=== PATIENT | male | born 1930 | race Caucasian/White ===

== ENCOUNTER 2016-10-28 09:52 | Inpatient (IN) | payer OTHER ==
[~2016-10-28] VITALS: Ht 177.8 cm; Wt 83.9 kg
[~2016-10-28 09:52] MED LIST: LEVAQUIN500 MG PO
[2016-10-28 10:53] LABS: EOSINOPHIL (%) 1.1 % (0-5); EOSINOPHIL COUNT 0.1 K/uL (0-0.3); HEMATOCRIT 42.5 % (38.0-50.0); IMMATURE GRANULOCYTE (%) 0.4 % (0.0-0.7); INSTRUMENT ABS NEUTROPHIL CT 7.3 K/uL; LYMPHOCYTE COUNT 1.4 K/uL (1.0-2.8); MCH 30.7 PG (29.0-34.0); MCHC 33.2 G/DL (30.0-36.0); MCV 92.6 FL (86-99); MEAN PLAT.VOLUME 10.7 uM^3 (9.0-12.4); MONOCYTE (%) 7.6 % (3-12); MONOCYTE COUNT 0.7 K/uL (0-0.8); NEUTROPHIL (%) 76.4 % (45-76); NEUTROPHIL COUNT 7.3 K/uL (1.8-6.4); PLATELET COUNT 284 K/uL (156-360); RBC DIS.WIDTH-SD 44.2 % (39-53); RED BLOOD COUNT 4.59 M/uL (4.00-5.50); WHITE BLOOD COUNT 9.5 K/uL (4.1-10.2)
[2016-10-28 11:07] LABS: CHLORIDE 103 mEq/L (99-109); POTASSIUM 5.1 mEq/L (3.7-5.4); SODIUM 137 mEq/L (136-147)
[2016-10-28 11:09] LABS: GLUCOSE 187 mg/dL (70-99)
[2016-10-28 11:11] LABS: ANION GAP 11 MEQ/L (2-14); TOTAL BILIRUBIN 0.6 mg/dL (0.0-1.0)
[2016-10-28 11:13] LABS: ALKALINE PHOSPHATASE 57 IU/L (3-129); GFR ESTIMATE (CALCULATED) 56 mL/min/
[2016-10-28 11:14] LABS: UREA NITROGEN (BUN) 21 mg/dL (9-23)
[2016-10-28 11:17] LABS: LIPASE 15 U/L (1.0-51.0)
[2016-10-28] MEDS ORDERED: LOPRESSOR50 MG PO (14:29)
[2016-10-28] MEDS ORDERED: LEVEMIR FL100 UNIT/1 SC (14:30)
[2016-10-28] MEDS ORDERED: METFORMIN HCL500 MG PO (14:33)
[2016-10-28] MEDS ORDERED: SIMVASTATIN40 MG PO (14:33)
[2016-10-28] MEDS ORDERED: GLIMEPIRIDE4 MG PO (14:33)
[2016-10-28] MEDS ORDERED: [UNRECOGNIZED DRUG - OTHER] PO (14:34)
[2016-10-28] MEDS ORDERED: ASPIR-LOW81 MG PO (14:36)
[2016-10-28 15:19] LABS: ADD MIUA? YES; BILIRUBIN NEGATIVE; BLOOD MODERATE; COLOR YELLOW ((YELLOW)); GLUCOSE (STRIP) NEGATIVE; KETONES NEGATIVE; LEUKOCYTES LARGE; NITRITE POSITIVE; PROTEIN (STRIP) 100; SPECIFIC GRAVITY 1.014 (1.000-1.030); UROBILINOGEN 0.2 MG/DL (0.2-1.0)
[2016-10-28 15:42] LABS: EPITHELIAL CELLS 1+ /HPF; MUCUS NONE SEEN /LPF; WHITE BLOOD CELLS TNTC /HPF (0-5)
[2016-10-28 15:43] LABS: BACTERIA 4+ /HPF
[2016-10-28 21:00] VITALS: BP 151/66
[2016-10-29 07:48] VITALS: BP 119/60
[2016-10-29 11:28] LABS: POINT-OF-CARE METER ID UU13113725
[2016-10-29 12:06] LABS: ANION GAP 8 MEQ/L (2-14); CHLORIDE 104 MEQ/L (99-109); POTASSIUM 4.1 MEQ/L (3.7-5.4); SAMPLE HEMOLYSIS CHECK 0; SAMPLE ICTERIC CHECK 0; SAMPLE LIPEMIA CHECK 0; SODIUM 135 MEQ/L (136-147)
[2016-10-29 12:12] LABS: GFR ESTIMATE (CALCULATED) > 59 mL/min/; GLUCOSE 183 mg/dL (70-99); UREA NITROGEN (BUN) 14 mg/dL (9-23)
[2016-10-29 19:40] VITALS: BP 121/58
[2016-10-29 23:18] VITALS: BP 134/64
[2016-10-30 03:33] VITALS: BP 119/54
[2016-10-30 06:26] LABS: HEMATOCRIT 35.9 % (38.0-50.0); MCH 30.8 PG (29.0-34.0); MCHC 33.4 G/DL (30.0-36.0); MCV 92.1 FL (86-99); MEAN PLAT.VOLUME 10.3 uM^3 (9.0-12.4); PLATELET COUNT 214 K/uL (156-360); RBC DIS.WIDTH-CV 13.1 % (11.8-14.6); RBC DIS.WIDTH-SD 43.8 % (39-53); WHITE BLOOD COUNT 7.7 K/uL (4.1-10.2)
[2016-10-30 06:42] LABS: ALKALINE PHOSPHATASE 45 IU/L (3-129); ANION GAP 7 MEQ/L (2-14); CHLORIDE 108 MEQ/L (99-109); GFR ESTIMATE (CALCULATED) > 59 mL/min/; GLUCOSE 148 mg/dL (70-99); POTASSIUM 3.9 MEQ/L (3.7-5.4); SAMPLE HEMOLYSIS CHECK 0; SAMPLE ICTERIC CHECK 0; SAMPLE LIPEMIA CHECK 0; SODIUM 139 MEQ/L (136-147); TOTAL BILIRUBIN 0.4 MG/DL (0.0-1.0); UREA NITROGEN (BUN) 10 mg/dL (9-23)
[2016-10-30 07:01] LABS: POINT-OF-CARE METER ID UU13113725
[2016-10-30 07:40] VITALS: BP 122/64
[2016-10-30 14:38] VITALS: BP 116/88
[2016-10-30] MEDS ORDERED: CIPRO500 MG PO (15:14)
[2016-10-30] MEDS ORDERED: TRAMADOL HCL50 MG PO (15:16)
== END 2016-10-30 16:51 | disposition home or self-care (01) | DRG 699 ==
LOC: EME 09:52 → 5EAST 16:00 → EDOF 16:00 → 5EAST 20:20
PROVIDERS: Emergency Medicine; Internal Medicine
DX: I82.3 Embolism and thrombosis of renal vein (principal); N10 Acute pyelonephritis; N39.0 Urinary tract infection, site not specified; E11.9 Type 2 diabetes mellitus without complications; I10 Essential (primary) hypertension; E78.5 Hyperlipidemia, unspecified; B96.89 Other specified bacterial agents as the cause of diseases classified elsewhere; N43.3 Hydrocele, unspecified; I25.10 Atherosclerotic heart disease of native coronary artery without angina pectoris; R33.9 Retention of urine, unspecified; K80.20 Calculus of gallbladder without cholecystitis without obstruction; Z79.4 Long term (current) use of insulin; Z85.51 Personal history of malignant neoplasm of bladder; Z95.5 Presence of coronary angioplasty implant and graft; Z90.49 Acquired absence of other specified parts of digestive tract
CPT/HCPCS: 71020; 74177; 80053; 80069; 81003; 82948; 83690; 85025; 85027; 87077; 87086; 87186; 99281; 99285; J0696; J0744; J1815; J2270; J7030; J7050; S0030

== ENCOUNTER 2016-11-22 20:13 | Inpatient (IN) | payer OTHER ==
[~2016-11-22] VITALS: Ht 180.3 cm; Wt 77.0 kg
[~2016-11-22 20:13] MED LIST changes: +ASPIR-LOW81 MG PO; +CIPRO500 MG PO; +GLIMEPIRIDE4 MG PO; +LEVEMIR FL100 UNIT/1 SC; +LOPRESSOR50 MG PO; +METFORMIN HCL500 MG PO; +SIMVASTATIN40 MG PO; +TRAMADOL HCL50 MG PO; +[UNRECOGNIZED DRUG - OTHER] PO
[2016-11-22 20:52] LABS: EOSINOPHIL (%) 0.1 % (0-5); HEMATOCRIT 45.1 % (38.0-50.0); IMMATURE GRANULOCYTE (%) 0.9 % (0.0-0.7); IMMATURE GRANULOCYTE COUNT 0.1 K/uL; INSTRUMENT ABS NEUTROPHIL CT 14.4 K/uL; MCH 29.8 PG (29.0-34.0); MCHC 33.3 G/DL (30.0-36.0); MCV 89.7 FL (86-99); MEAN PLAT.VOLUME 10.1 uM^3 (9.0-12.4); MONOCYTE (%) 5.3 % (3-12); MONOCYTE COUNT 0.9 K/uL (0-0.8); NEUTROPHIL (%) 87.8 % (45-76); NEUTROPHIL COUNT 14.4 K/uL (1.8-6.4); PLATELET COUNT 404 K/uL (156-360); RBC DIS.WIDTH-CV 13.1 % (11.8-14.6); RBC DIS.WIDTH-SD 42.9 % (39-53); RED BLOOD COUNT 5.03 M/uL (4.00-5.50); WHITE BLOOD COUNT 16.4 K/uL (4.1-10.2)
[2016-11-22 20:59] LABS: CHLORIDE 96 mEq/L (99-109); SODIUM 132 mEq/L (136-147)
[2016-11-22 21:00] LABS: MAGNESIUM 1.4 mg/dL (1.3-2.7)
[2016-11-22 21:02] LABS: GLUCOSE 67 mg/dL (70-99)
[2016-11-22 21:03] LABS: ANION GAP 16 MEQ/L (2-14); TOTAL BILIRUBIN 0.5 mg/dL (0.0-1.0)
[2016-11-22 21:05] LABS: ALKALINE PHOSPHATASE 63 IU/L (3-129); GFR ESTIMATE (CALCULATED) 51 mL/min/
[2016-11-22 21:06] LABS: UREA NITROGEN (BUN) 24 mg/dL (9-23)
[2016-11-22 21:07] LABS: DIRECT BILIRUBIN 0.3 mg/dL (0.0-0.3)
[2016-11-22 21:09] LABS: LIPASE 11 U/L (1.0-51.0)
[2016-11-22 21:11] LABS: TROP-I INTERPRETATION NEGATIVE; TROPONIN-I 0.02 ng/mL (0.0-0.30)
[2016-11-22 21:59] LABS: ADD MIUA? YES; BILIRUBIN NEGATIVE; BLOOD LARGE; COLOR YELLOW ((YELLOW)); GLUCOSE (STRIP) NEGATIVE; KETONES 20; LEUKOCYTES MODERATE; NITRITE NEGATIVE; PROTEIN (STRIP) 30; SPECIFIC GRAVITY 1.012 (1.000-1.030); UROBILINOGEN 0.2 MG/DL (0.2-1.0)
[2016-11-22 22:18] LABS: BACTERIA 2+ /HPF; CASTS PRESENT /LPF; CRYSTALS NONE SEEN; EPITHELIAL CELLS RARE /HPF; MUCUS 1+ /LPF; UCUL ADDED? YES; WHITE BLOOD CELLS TNTC /HPF (0-5)
[2016-11-22 22:19] LABS: COARSE GRANULAR CASTS RARE /LPF; HYALINE CASTS 0-5 /LPF
[2016-11-22 22:21] LABS: D-DIMER ELISA 2.47 mg/L FEU (< 0.57)
[2016-11-23 01:24] VITALS: BP 124/58
[2016-11-23 01:47] VITALS: BP 124/58
[2016-11-23 04:07] VITALS: BP 106/52
[2016-11-23 06:18] VITALS: BP 122/59
[2016-11-23 07:10] LABS: TROP-I INTERPRETATION NEGATIVE; TROPONIN-I 0.06 ng/mL (0.0-0.30)
[2016-11-23 07:12] LABS: ALKALINE PHOSPHATASE 50 IU/L (3-129); ANION GAP 8 MEQ/L (2-14); CHLORIDE 101 MEQ/L (99-109); GFR ESTIMATE (CALCULATED) > 59 mL/min/; GLUCOSE 59 mg/dL (70-99); SAMPLE HEMOLYSIS CHECK 0; SAMPLE ICTERIC CHECK 0; SAMPLE LIPEMIA CHECK 0; SODIUM 133 MEQ/L (136-147); TOTAL BILIRUBIN 0.5 MG/DL (0.0-1.0); UREA NITROGEN (BUN) 20 mg/dL (9-23)
[2016-11-23 07:43] LABS: HEMATOCRIT 35.1 % (38.0-50.0); MCH 29.8 PG (29.0-34.0); MCHC 33.3 G/DL (30.0-36.0); MCV 89.5 FL (86-99); MEAN PLAT.VOLUME 10.1 uM^3 (9.0-12.4); PLATELET COUNT 290 K/uL (156-360); RBC DIS.WIDTH-CV 13.2 % (11.8-14.6); RBC DIS.WIDTH-SD 42.9 % (39-53); WHITE BLOOD COUNT 13.7 K/uL (4.1-10.2)
[2016-11-23 07:54] LABS: POINT-OF-CARE METER ID UU14174216
[2016-11-23 07:58] LABS: METH RESISTANT S AUREUS PCR NEGATIVE (NEGATIVE)
[2016-11-23 07:59] LABS: PROBE CHECK PASS; SPECIMEN PROCESSING CONTROL PASS
[2016-11-23 08:07] LABS: RED BLOOD COUNT 3.92 M/uL (4.00-5.50)
[2016-11-23 08:29] LABS: POINT-OF-CARE METER ID UU14174216
[2016-11-23 11:39] LABS: POINT-OF-CARE METER ID UU14174216
[2016-11-23] MEDS ORDERED: METFORMIN HCL500 MG PO (16:16)
[2016-11-23] MEDS ORDERED: LOPRESSOR50 MG PO (16:16)
[2016-11-23] MEDS ORDERED: ZOCOR40 MG PO (16:16)
[2016-11-23] MEDS ORDERED: AMARYL4 MG PO (16:17)
[2016-11-23] MEDS ORDERED: PROTONIX40 MG PO (16:18)
[2016-11-23] MEDS ORDERED: LEVAQUIN500 MG PO (16:18)
[2016-11-23] MEDS ORDERED: TRAMADOL HCL50 MG PO (16:19)
[2016-11-23] MEDS ORDERED: HYDROCODON-ACE1 EAC7 PO (16:19)
[2016-11-23 16:48] LABS: POINT-OF-CARE METER ID UU14174216
[2016-11-23] MEDS ORDERED: LEVEMIR FL100 UNIT/1 SC (17:02)
[2016-11-23 19:45] VITALS: BP 117/56
[2016-11-23 20:48] LABS: POINT-OF-CARE METER ID UU13113781
[2016-11-24] VITALS (7 sets, daily range): BP systolic 128–150; BP diastolic 63–94
[2016-11-24 06:44] LABS: HEMATOCRIT 35.8 % (38.0-50.0); MCH 30.3 PG (29.0-34.0); MCHC 33.8 G/DL (30.0-36.0); MCV 89.7 FL (86-99); MEAN PLAT.VOLUME 10.2 uM^3 (9.0-12.4); PLATELET COUNT 312 K/uL (156-360); RBC DIS.WIDTH-CV 13.1 % (11.8-14.6); RBC DIS.WIDTH-SD 42.7 % (39-53); RED BLOOD COUNT 3.99 M/uL (4.00-5.50); WHITE BLOOD COUNT 14.1 K/uL (4.1-10.2)
[2016-11-24 07:38] LABS: ALKALINE PHOSPHATASE 57 IU/L (3-129); ANION GAP 11 MEQ/L (2-14); CHLORIDE 100 MEQ/L (99-109); GFR ESTIMATE (CALCULATED) > 59 mL/min/; GLUCOSE 162 mg/dL (70-99); POTASSIUM 4.5 MEQ/L (3.7-5.4); SAMPLE HEMOLYSIS CHECK 1; SAMPLE ICTERIC CHECK 0; SAMPLE LIPEMIA CHECK 0; SODIUM 134 MEQ/L (136-147); TOTAL BILIRUBIN 0.6 MG/DL (0.0-1.0); UREA NITROGEN (BUN) 17 mg/dL (9-23)
[2016-11-24 08:00] LABS: POINT-OF-CARE USER ID ENVKC36
[2016-11-24 12:15] LABS: POINT-OF-CARE METER ID UU14174216; POINT-OF-CARE USER ID ENVKC36
[2016-11-24 16:51] LABS: POINT-OF-CARE USER ID ENVKC36
[2016-11-25 04:20] VITALS: BP 131/61
[2016-11-25 07:54] VITALS: BP 147/67
[2016-11-25 12:00] VITALS: BP 132/59
[2016-11-25 16:30] LABS: POINT-OF-CARE METER ID UU13113781
[2016-11-25 20:32] VITALS: BP 141/63
[2016-11-26 00:25] VITALS: BP 131/60
[2016-11-26 05:25] VITALS: BP 134/65
[2016-11-26 07:49] VITALS: BP 133/63
[2016-11-26 12:33] LABS: POINT-OF-CARE METER ID UU13113781
[2016-11-26 12:44] VITALS: BP 140/63
[2016-11-26] MEDS ORDERED: ELIQUIS5 MG PO (16:09)
[2016-11-26] MEDS ORDERED: DILTIAZEM 24HR120 MG PO (16:10)
[2016-11-26] MEDS ORDERED: MILK OF MAGNESI10 ML PO (16:11)
[2016-11-26] MEDS ORDERED: DOCUSATE SODIU100 MG PO (16:11)
[2016-11-26 17:55] VITALS: BP 130/66
== END 2016-11-26 21:02 | disposition home or self-care (01) | DRG 309 ==
LOC: EME → EDBD 20:13 → EME 20:13 → EDOF 22:14 → 4EAST 22:14
PROVIDERS: Emergency Medicine; Internal Medicine
DX: I48.0 Paroxysmal atrial fibrillation (principal); I72.8 Aneurysm of other specified arteries; I71.2 Thoracic aortic aneurysm, without rupture; I71.9 Aortic aneurysm of unspecified site, without rupture; N13.30 Unspecified hydronephrosis; E11.8 Type 2 diabetes mellitus with unspecified complications; K57.92 Diverticulitis of intestine, part unspecified, without perforation or abscess without bleeding; R33.9 Retention of urine, unspecified; I10 Essential (primary) hypertension; M54.9 Dorsalgia, unspecified; R91.8 Other nonspecific abnormal finding of lung field; I25.10 Atherosclerotic heart disease of native coronary artery without angina pectoris; E78.5 Hyperlipidemia, unspecified; K57.30 Diverticulosis of large intestine without perforation or abscess without bleeding; F03.90 Unspecified dementia, unspecified severity, without behavioral disturbance, psychotic disturbance, mood disturbance, and anxiety; Z95.5 Presence of coronary angioplasty implant and graft; Z79.01 Long term (current) use of anticoagulants; Z87.440 Personal history of urinary (tract) infections
CPT/HCPCS: 70470; 71010; 71275; 74176; 80048; 80053; 80076; 81003; 82948; 83605; 83690; 83735; 83880; 84439; 84443; 84484; 85025; 85027; 85379; 87040; 87077; 87086; 87106; 87641; 93005; 94640; 94799; 99202; 99281; 99285; J0696; J1160; J1650; J1815; J2060; J2270; J2543; J3475; J7030; J7050